=== PATIENT | female | born 1965 | race Caucasian/White ===

== ENCOUNTER 2018-10-07 07:00 | Emergency (ER) | payer MEDICAID, OTHER ==
[~2018-10-07] VITALS: Ht 165.1 cm; Wt 61.2 kg
[2018-10-07 07:00] VITALS: BP_SYST 148
[2018-10-07] MEDS ORDERED: DIPHENHYDRAMINE HCL 50 MG CAPSULE PO ONE (07:30)
[2018-10-07] MEDS ORDERED: FAMOTIDINE 20 MG TABLET PO ONE (07:30)
[2018-10-07] MEDS ORDERED: PREDNISONE 20 MG TABLET PO ONE (07:30)
[2018-10-07 08:29] VITALS: BP_SYST 148
== END 2018-10-07 08:29 | disposition home or self-care (01) ==
LOC: SED 07:00
DX: T78.49XA Other allergy, initial encounter (principal); F17.210 Nicotine dependence, cigarettes, uncomplicated; I10 Essential (primary) hypertension; Z88.2 Allergy status to sulfonamides; X58.XXXA Exposure to other specified factors, initial encounter
CPT/HCPCS: 99284; J7512; Q0163

== ENCOUNTER 2019-02-25 07:27 | Inpatient (IN) | payer MEDICAID, OTHER ==
[~2019-02-25] VITALS: Ht 165.1 cm; Wt 60.8 kg
[2019-02-25 07:27] VITALS: BP_SYST 197
[2019-02-25] MEDS ORDERED: CLINDAMYCIN 300 MG in D5W 50 ML IV ONE (08:00)
[2019-02-25] MEDS ORDERED: CLINDAMYCIN PHOSPHATE 300 MG/2 ML VIAL ONE (08:30)
[2019-02-25 08:32] LABS: BASOPHILS # (AUTO) 0.1 K/uL (0.0-0.2); BASOPHILS % (AUTO) 0.8 % (0.0-2.0); CALCIUM 9.2 mg/dL (8.4-11.0); CREATININE 0.59 mg/dL (0.55-1.30); EOSINOPHILS # (AUTO) 0.3 K/uL (0.0-0.4); EOSINOPHILS % (AUTO) 3.6 % (0.0-4.0); HEMATOCRIT 45.2 % (36-48); HEMOGLOBIN 15.1 g/dL (12.0-16.0); LYMPHOCYTES # (AUTO) 1.6 K/uL (1.0-5.5); LYMPHOCYTES % (AUTO) 18.1 % (20.5-51.5); MEAN CORPUSCULAR HEMOGLOBIN 29 pg (27-31); MEAN CORPUSCULAR HGB CONC 33 % (32-36); MEAN CORPUSCULAR VOLUME 88 fL (79.0-98.0); MONOCYTES # (AUTO) 0.6 K/uL (0.0-1.0); NEUTROPHILS # (AUTO) 6.1 K/uL (1.8-7.7); NEUTROPHILS % (AUTO) 70.5 % (40.0-70.0); PLATELET COUNT (AUTO) 336 K/uL (130-430); POTASSIUM 3.7 mmol/L (3.5-5.1); RED BLOOD CELL COUNT(AUTO) 5.13 MIL/uL (4.2-6.2); RED CELL DISTRIBUTION WIDTH 13.7 % (9.0-15.0); WHITE BLOOD COUNT (AUTO) 8.7 K/uL (4.8-10.8)
[2019-02-25 08:37] LABS: ALBUMIN 3.3 g/dL (3.4-4.8); TOTAL BILIRUBIN 0.4 mg/dL (0.0-1.0)
[2019-02-25] MEDS ORDERED: IOHEXOL 100 ML IV ONE (09:12)
[2019-02-25] MEDS: VANCOMYCIN HCL 1,000 MG in NS 250 ML IV SCH (11:25)
[2019-02-25] MEDS ORDERED: VANCOMYCIN HCL 1000 MG/VIAL IV ONE (11:26)
[2019-02-25 11:45] VITALS: BP_SYST 145
[2019-02-25 12:19] VITALS: BP_SYST 145
[2019-02-25] MEDS ORDERED: ACETAMINOPHEN 325 MG TABLET PO PRN (14:00)
[2019-02-25] MEDS: CLINDAMYCIN 600 mg/50mL D5W 50 ML IV SCH ×2 (14:14→17:55)
[2019-02-25 14:48] VITALS: BP_SYST 113
[2019-02-25 20:00] VITALS: BP_SYST 125
[2019-02-25] MEDS: ENOXAPARIN SODIUM 40 MG/0.4 ML SYRINGE SUBCUT SCH (21:16)
[2019-02-25] MEDS: AMPICILLIN SODIUM/SULBACTAM NA 3 GM in NS 100 ML IV SCH (23:37)
[2019-02-26 00:11] VITALS: BP_SYST 128
[2019-02-26] MEDS: VANCOMYCIN HCL 1,000 MG in NS 250 ML IV SCH ×2 (00:32→12:03)
[2019-02-26] MEDS: AMPICILLIN SODIUM/SULBACTAM NA 3 GM in NS 100 ML IV SCH ×3 (05:59→17:35)
[2019-02-26 08:13] VITALS: BP_SYST 124
[2019-02-26] MEDS ORDERED: DIPHENHYDRAMINE INJ 50 MG/ML VIAL IVP ONE (11:15)
[2019-02-26] MEDS: traMADol HCL HCL 50 MG TABLET (ULTRAM) PO PRN ×2 (11:24→22:47)
[2019-02-26 12:39] VITALS: BP_SYST 126
[2019-02-26 16:49] VITALS: BP_SYST 121
[2019-02-26] MEDS: ENOXAPARIN SODIUM 40 MG/0.4 ML SYRINGE SUBCUT SCH (20:58)
[2019-02-26 23:24] VITALS: BP_SYST 140
[2019-02-27] MEDS: AMPICILLIN SODIUM/SULBACTAM NA 3 GM in NS 100 ML IV SCH ×3 (00:04→10:49)
[2019-02-27] MEDS: VANCOMYCIN HCL 1,000 MG in NS 250 ML IV SCH ×2 (00:41→12:56)
[2019-02-27 08:00] VITALS: BP_SYST 122
[2019-02-27] MEDS ORDERED: TETRACAINE (PONTOCAINE) TOPICAL 30 ML SOLUTION TP ONE (08:00)
[2019-02-27] MEDS ORDERED: TETRACAINE HCL 0.5% OPHTHALMIC DROPS 15 ML OP ONE (08:00)
[2019-02-27] MEDS ORDERED: FLUORESCEIN SODIUM 1 MG OPHTHALMIC STRIP OP ONE (08:00)
[2019-02-27] MEDS ORDERED: SILVER 44.4 ML GEL.ER.ML. TP SCH (09:00)
[2019-02-27 12:46] VITALS: BP_SYST 130
[2019-02-27 16:47] VITALS: BP_SYST 136
== END 2019-02-27 16:30 | disposition left against medical advice (07) | DRG 383 ==
LOC: SED 07:27 → SMU 10:41
PROVIDERS: ADMIT Family Medicine; ATTEND Family Medicine
DX: L03.213 Periorbital cellulitis (principal); S05.8X2A Other injuries of left eye and orbit, initial encounter; L03.211 Cellulitis of face; J32.9 Chronic sinusitis, unspecified; X58.XXXA Exposure to other specified factors, initial encounter; Z59.0 Homelessness; Z88.2 Allergy status to sulfonamides; Y93.89 Activity, other specified; Y92.89 Other specified places as the place of occurrence of the external cause; Y99.8 Other external cause status
CPT/HCPCS: 36415; 70481; 80053; 80202-TC; 85025; 87040-TC; 87081; 96365; 99285; A6261; J0295; J1200; J1650; J3370; J3490; J7050; J7060; Q9967

== ENCOUNTER 2021-08-07 05:38 | Emergency (ER) | payer MEDICAID, OTHER ==
[~2021-08-07] VITALS: Ht 165.1 cm; Wt 59.0 kg
[2021-08-07 05:45] VITALS: BP_SYST 160
[2021-08-07] MEDS ORDERED: KETOROLAC TROMETHAMINE 15 MG VIAL IM ONE (06:15)
[2021-08-07 07:08] LABS: BILIRUBIN,URINE NEGATIVE (NEGATIVE); BLOOD, URINE NEGATIVE (NEGATIVE); CLARITY/URINE CLEAR (CLEAR); COLOR,URINE YELLOW (YELLOW); GLUCOSE,URINE NEGATIVE (NEGATIVE); KETONES,URINE NEGATIVE (NEGATIVE); LEUKOCYTE ESTERASE ,URINE NEGATIVE (NEGATIVE); NITRITE, URINE NEGATIVE (NEGATIVE); PROTEIN URINE NEGATIVE (NEGATIVE); UROBILINOGEN,URINE 0.2 (0.2-1.0)
[2021-08-07 07:21] LABS: BASOPHILS % (AUTO) 0.7 % (0.0-2.0); EOSINOPHILS # (AUTO) 0.4 K/uL (0.0-0.4); EOSINOPHILS % (AUTO) 7.3 % (0.0-4.0); HEMATOCRIT 36.9 % (36-48); HEMOGLOBIN 12.6 g/dL (12.0-16.0); LYMPHOCYTES # (AUTO) 1.8 K/uL (1.0-5.5); LYMPHOCYTES % (AUTO) 29.9 % (20.5-51.5); MEAN CORPUSCULAR HEMOGLOBIN 30 pg (27-31); MEAN CORPUSCULAR HGB CONC 34 % (32-36); MEAN CORPUSCULAR VOLUME 87 fL (79.0-98.0); MONOCYTES # (AUTO) 0.6 K/uL (0.0-1.0); MONOCYTES % (AUTO) 9.4 % (1.7-9.3); NEUTROPHILS # (AUTO) 3.1 K/uL (1.8-7.7); NEUTROPHILS % (AUTO) 52.7 % (40.0-70.0); PLATELET COUNT (AUTO) 335 K/uL (130-430); RED BLOOD CELL COUNT(AUTO) 4.26 MIL/uL (4.2-6.2); RED CELL DISTRIBUTION WIDTH 13.8 % (9.0-15.0)
[2021-08-07 07:40] LABS: CALCIUM 8.7 mg/dL (8.4-11.0); CREATININE 0.94 mg/dL (0.55-1.30); POTASSIUM 3.7 mmol/L (3.5-5.1)
[2021-08-07 07:46] LABS: ALBUMIN 3.1 g/dL (3.4-4.8); TOTAL BILIRUBIN 0.4 mg/dL (0.0-1.0)
[2021-08-07 08:19] LABS: C-REACTIVE PROTEIN QUANT 0.7 mg/dL (0-0.5)
[2021-08-07 11:30] VITALS: BP_SYST 144
== END 2021-08-07 13:10 | disposition left against medical advice (07) ==
LOC: SED 05:38
DX: C79.89 Secondary malignant neoplasm of other specified sites (principal); Z85.3 Personal history of malignant neoplasm of breast; Z88.2 Allergy status to sulfonamides; Z79.899 Other long term (current) drug therapy; Z20.822 Contact with and (suspected) exposure to COVID-19
CPT/HCPCS: 36415; 74176; 76376; 80053; 81003; 82150; 83605; 83690; 85025; 86140; 87426; 96372; 99284; J1885

== ENCOUNTER 2021-10-16 03:25 | Emergency (ER) | payer MEDICAID, SELFPAY ==
[~2021-10-16] VITALS: Ht 165.1 cm; Wt 59.0 kg
[2021-10-16 03:25] VITALS: BP_SYST 154
--- NOTE | 2021-10-16 03:56 | NUR ---
DR. HERNANDEZ AT BEDSIDE FOR EVALUATION.
--- NOTE | 2021-10-16 04:00 | NUR ---
PATIENT [id number] AND AMBUALTORY BIB BLS FROM THE STREETS C/O RIGHT FLANK PAIN THAT RADIATES TO LOWER LEG. VSS. CURRENTLY STATING 10/10 ON THE PAIN SCALE. DENIES ANY SOB OR CP, N/V/D. HX OF POLYSUBSTANCE ABUSE, AND CA. PT WAS CURRENTLY TAKING KEFLEX FOR KIDNEY ISSUES.
[2021-10-16] MEDS ORDERED: LORazepam 2 MG/ML VIAL IVP ONE (04:15)
[2021-10-16] MEDS ORDERED: ONDANSETRON HCL 4 MG/2 ML VIAL IVP ONE (04:15)
[2021-10-16] MEDS ORDERED: NACL 0.9% 1,000 ML IV ONE (04:15)
[2021-10-16] MEDS ORDERED: MORPHINE 4 MG INJ. 4 MG/ML VIAL IVP ONE (04:15)
--- NOTE | 2021-10-16 04:22 | NUR ---
PT REFUSED TO HAVE PIV INSERTED BY RN. PT STATED THAT "IT WILL HURT AND YOU WILL MAKE IT HURT". EDUCATED PATIENT ON THE IMPORTANCE OF HAVING IV ESTABLISHED AND STATED "I DO NOT WANT YOU TO DO IT GET SOMEONE ELSE". NOTIFIED .
--- NOTE | 2021-10-16 04:40 | NUR ---
ANOTHER RN ATTEMPTED TO PLACE PIV. PT YELLING AND SCREAMING AT STAFF STATING "OW OW OW IT HURTS IT HURTS TAKE IT OFF". PT MOVING EXTREMTIES ERRADICTLY. NO ATTEMPTED HAS BEEN TO PLACE IV. PATIENT CONTINUES TO YELL AT STAFF BEFORE PLACING CATHETER. MADE AWARE. MD SPOKE WITH PT AND PT AGREES TO HAVE PIV PLACED.
--- NOTE | 2021-10-16 05:00 | NUR ---
ATTEMPTED TO RE-INSERT IV. # 20 gauge angiocath placed to LEFT FA. Use of asceptic technique. Opsite placed over site. Blood return noted. Blood for lab drawn from site. Flushed with 10 cc of normal saline. No evidence of infiltration noted. Patient tolerated well.
[2021-10-16] MEDS ORDERED: HYDR-3917 PO (05:54)
[2021-10-16] MEDS ORDERED: CYCL10TA24 PO (05:54)
[2021-10-16] MEDS ORDERED: NAPR-686 PO (05:54)
[2021-10-16 06:02] LABS: BASOPHILS # (AUTO) 0.1 K/uL (0.0-0.2); BASOPHILS % (AUTO) 0.7 % (0.0-2.0); EOSINOPHILS # (AUTO) 0.2 K/uL (0.0-0.4); HEMATOCRIT 41.1 % (36-48); HEMOGLOBIN 13.6 g/dL (12.0-16.0); LYMPHOCYTES % (AUTO) 11.8 % (20.5-51.5); MEAN CORPUSCULAR HEMOGLOBIN 28 pg (27-31); MEAN CORPUSCULAR HGB CONC 33 % (32-36); MEAN CORPUSCULAR VOLUME 85 fL (79.0-98.0); MONOCYTES # (AUTO) 0.8 K/uL (0.0-1.0); MONOCYTES % (AUTO) 8.6 % (1.7-9.3); NEUTROPHILS # (AUTO) 6.7 K/uL (1.8-7.7); NEUTROPHILS % (AUTO) 76.9 % (40.0-70.0); PLATELET COUNT (AUTO) 355 K/uL (130-430); RED BLOOD CELL COUNT(AUTO) 4.84 MIL/uL (4.2-6.2); WHITE BLOOD COUNT (AUTO) 8.7 K/uL (4.8-10.8)
[2021-10-16 06:03] LABS: BILIRUBIN,URINE NEGATIVE (NEGATIVE); BLOOD, URINE NEGATIVE (NEGATIVE); CLARITY/URINE CLEAR (CLEAR); COLOR,URINE YELLOW (YELLOW); GLUCOSE,URINE NEGATIVE (NEGATIVE); KETONES,URINE NEGATIVE (NEGATIVE); LEUKOCYTE ESTERASE ,URINE 1+ (NEGATIVE); NITRITE, URINE NEGATIVE (NEGATIVE); PROTEIN URINE NEGATIVE (NEGATIVE); UROBILINOGEN,URINE 0.2 (0.2-1.0)
--- NOTE | 2021-10-16 06:42 | NUR ---
PT RESTING AT THIS TIME. VSS. PENDING LAB RESULTS FOR DISPOSITION. NO ACUTE DISTRESS NOTED.
[2021-10-16 06:44] LABS: CALCIUM 9.4 mg/dL (8.4-11.0); CREATININE 0.95 mg/dL (0.55-1.30); POTASSIUM 4.1 mmol/L (3.5-5.1)
[2021-10-16 06:46] LABS: BACTERIA,URINE FEW /HPF (None Seen)
[2021-10-16 06:49] LABS: ALBUMIN 3.4 g/dL (3.4-4.8); TOTAL BILIRUBIN 0.5 mg/dL (0.0-1.0)
--- NOTE | 2021-10-16 07:11 | NUR ---
REPORT GIVEN TO DAVID PORTILLO WHO WILL ASSUME ALL CARE OF PT.
--- NOTE | 2021-10-16 07:23 | NUR ---
PT WITH EYES CLOSED, LAYING ON GURNEY, IN NAD. RESP EVEN AND UNLABORED, ON RA @91%. PT EASILY AROUSABLE, REFUSES TO HAVE OXYGEN ON. PT DENIES ANY PAIN, YLLS AT ME STATING "LET ME SLEEP". SAFETY PRECAUTIONS IN PLACE, WILL CONT TO MONITOR. WAITING FOR SOCIAL WORK. PT HOMELESS AND NOT F/U WITH ONCOLOGIST FOR HER CANCER.
--- NOTE | 2021-10-16 08:10 | NUR ---
crop farm workers here in ER, notified her of possible homeless discharge, stated she will come back and see the patient.
[2021-10-16 10:41] LABS: BARBITURATE, URINE NEGATIVE (NEG <=200); URINE AMPHETAMINE POSITIVE (NEG <=500)
[2021-10-16 10:42] LABS: BENZODIAZEPINE, URINE NEGATIVE (NEG <=150); CANNABINOID, URINE POSITIVE (NEG <=50); COCAINE, URINE NEGATIVE (NEG <=150); METHAMPHETAMINES SCREEN,URINE POSITIVE (NEG <=500); OPIATE, URINE POSITIVE (NEG <=100); PHENCYCLIDINE SCREEN,URINE NEGATIVE (NEG <=25); UR TRICYCLIC ANTIDEPRESSANTS NEGATIVE (NEG <=300); URINE METHADONE NEGATIVE (NEG <=200); URINE OXYCODONE SCREEN NEGATIVE (NEG <=100); URINE PROPOXYPHENE SCREEN NEGATIVE (NEG <=300)
--- NOTE | 2021-10-16 10:44 | NUR ---
PT IN NAD. RESP EVEN AND UNLABORED, ON RA @96%. VSS
--- NOTE | 2021-10-16 10:52 | NUR ---
bull gang worker at bedside for consult.
--- NOTE | 2021-10-16 10:59 | NUR ---
Per social secretary, pt has a friend that can come pick her up. Soham [phone], stated he will be here around 12:30. Pt has a place to stay in [facility], Commiss[employer] Production Supervisor Liz will provide pt with information regarding medical clinics in [facility] for f/u.
--- NOTE | 2021-10-16 11:50 | NUR ---
Patient seen for homelessness- She can stay w/ her friend in [facility]-the nurse will help her call her friend for a ride to his home. She was given a list of homeless resources and a list of county clinics in the [facility] area for MD follow up. She is requesting a meal and stated understanding of information given.
--- NOTE | 2021-10-16 12:16 | NUR ---
Lunch tray offered, assisted pt to eat, but refuses and falls back asleep. CN notified, waiitng for friend to arrive.
--- NOTE | 2021-10-16 13:36 | NUR ---
I CALLED ALBERT, PT'S FRIEND AGAIN FOR PICK-UP, STATES HE WILL BE HERE IN A FEW MINUTES. CN NOTIFIED.
--- NOTE | 2021-10-16 13:54 | NUR ---
Patient given written and verbal discharge instructions and verbalizes understanding. ER MD discussed with patient the results and treatment provided. Patient in stable condition. ID arm band removed. IV catheter removed intact and dressing applied, no active bleeding. Rx of flexganesh norco given. Patient educated on pain management and to follow up with PMD. Pain Scale . Opportunity for questions provided and answered. Medication side effect fact sheet provided.
[2021-10-16 13:55] VITALS: BP_SYST 134
== END 2021-10-16 13:55 | disposition home or self-care (01) ==
LOC: SED 03:25
DX: M54.16 Radiculopathy, lumbar region (principal); Z85.3 Personal history of malignant neoplasm of breast; Z88.2 Allergy status to sulfonamides; Z79.899 Other long term (current) drug therapy
CPT/HCPCS: 36415; 80053; 80307; 81000; 81025; 82962; 85025; 87086; 96361; 96374; 96375; 99284; J2060; J2270; J2405; J7030